=== PATIENT | female | born 1980 | race Caucasian/White ===

== ENCOUNTER 2017-11-06 07:47 | Day surgery (SDC) | payer OTHER, SELFPAY ==
[2017-11-05 14:39] VITALS: BMI 22.4
[2017-11-06] VITALS (7 sets, daily range): BP systolic 90–121; BP diastolic 55–76; PULSE 64–78; RESP 14–16; TEMP 35.8–36.6; O2SAT 97–100; BMI 22.4
--- NOTE | 2017-11-06 | PATH_ITS ---
[facility] Accession Number: [id number] . 01 Material submitted: . ENDOMETRIAL CURETTINGS . 02 Diagnosis: Endometrial Curettings: Portions of shedding endometrium and portions of secretory endometrium; negative for glandular hyperplasia, cytologic atypia, and malignancy. Some tissue fragments demonstrate prominent vessels, suggestive of polyp, if clinical and imaging findings are concordant. MRV/11/09/2017 . 02 Electronically signed: . Pearl Leach MD, Pathologist NPI- [id number] . 01 Gross description: . Received one formalin-filled container, labeled with the patient's name, labeled endometrial curettings. The specimen consists of approximately a 1 cc aggregate of tissue, mucoid material, and blood, which is filtered, wrapped, and entirely submitted in one cassette. ([id number]) /FRR . 02 Pathologist provided ICD-10: N85.00 . 02 CPT . 666041 Performed at: 01 [facility] [address], [place], [place] [id number] MD Ronald Pennington MD Phone: [phone] Performed at: 02 [facility] [address] [place], [place] [id number] MD En Decker MD Phone: [phone]
[2017-11-06] MEDS: LACTATED RINGERS 1,000 ML 100 ML IV (08:19)
--- NOTE | 2017-11-06 08:36 | SUR.OPER ---
Lithotomy on padded OR bed, head on pillow, arms secured on padded arm boards at <90 degrees abduction. Legs secured in padded yellow fins stirrups.
--- NOTE | 2017-11-06 08:54 | PM.PREOP ---
Pre-operative Note Interval Note Pre-op Check: History & Physical exam performed today
--- NOTE | 2017-11-06 08:57 | P.HP_ITS ---
History of Present Illness Date Patient Seen: 11/06/17 Time Patient Seen: 08:55 Chief complaint: D&C hysteroscopy novasure ablation [id number] Narrative: Patient is a 37-year-old who presents today for a D&C hysteroscopy with endometrial ablation secondary to menorrhagia Patient History Surgical History History of tubal ligation (Resolved 06/05/16) History of third molar tooth extraction (Resolved) S/P D&C (status post dilation and curettage) (Resolved ~2015) Status post arthroscopy (Resolved 2003) Family & Social History Social History: household members children Tobacco & Substance use: Smoking Status Never smoker alcohol intake current alcohol intake frequency a few times a month Substance Use Type does not use Meds Allergies Allergy/AdvReac Type Severity Reaction Status Date / Time No Known Drug Allergies Allergy Verified 11/06/17 08:56 Exam Vital Signs (past 8 hours): Vital Signs - 8 hr 3 11/06/17 08:13 Temperature 96.5 F L Pulse Rate 71 Respiratory Rate 16 Blood Pressure 109/70 Pulse Oximetry 100 Pulse Oximetry 100 Oxygen Delivery Method Room Air Narrative Exam Narrative: HEENT: No thyromegaly, no anterior cervical or supraclavicular lymphadenopathy. Lungs:Clear to auscultation bilaterally, no wheezes. Cardiovascular: Regular rate and rhythm, no murmurs, rubs, or gallops. Abdomen: Well-healed infraumbilical scars. No hepatosplenomegaly. No masses palpable. External genitalia: Normal Vagina: Normal Cervix: Normal Bimanual exam: 8 Week size uterus. Mobile.] Rectal: No masses. Assessment & Plan (1) Menorrhagia with regular cycle: Current visit: Yes Status: Acute Plan: Assessment/Plan Narrative: Assessment: 37-year-old with menorrhagia Negative endometrial biopsy Plan: D&C hysteroscopy with NovaSure endometrial ablation The risks, benefits, and alternatives to the procedure were explained to the patient. The risks including bleeding, infection, or uterine perforation. She understands these risks and agrees to proceed. A full capital P AR-Q was held and consent form was signed.
--- NOTE | 2017-11-06 09:16 | SUR.OPER ---
measurements for ablation: 5 length, 4.5 width, 124 power.
[2017-11-06] MEDS: fentaNYL 100 MCG/2 ML INJ IV ×2 (09:40→09:52)
--- NOTE | 2017-11-06 09:45 | PM.GYNOP.1 ---
Operative Date/Time/Diagnoses - Date of procedure: 11/06/17 Time of procedure: 09:45 Pre-op diagnosis: Menorrhagia Post-op diagnosis: same Procedure: Procedures Operation Date: 11/06/17 08:45 Actual Procedures Side Surgeon p Hysteroscopy D&C w/Novasure Ablation Theresa Contreras MD Indications: Menorrhagia Surgeon: Theresa Contreras Anesthesia Type: General (LMA) Operative Notes Findings: 7 week size anteverted uterus Both fallopian tube ostia observed Slightly thickened endometrial lining Closure Type: not applicable Specimen(s): endometrial curettings Estimated blood loss (mL): 30 Blood products transfused: none Procedure in detail: After informed consent was obtained, the patient was taken to the operating room where she was placed in the dorsal supine position. After adequate LMA general anesthesia was achieved, she was placed in the dorsal lithotomy position, and prepped and draped in the usual sterile fashion. A bivalve speculum was placed into the vagina, and the anterior lip of the cervix grasped with a single-tooth tenaculum. The cervical os was sequentially dilated with Hegar dilators to the # 10. The hysteroscope passed easily into the endometrial cavity. Both fallopian tube ostia were observed. The hysteroscope was removed. Sharp curettage was performed yielding a moderate amount of endometrial curettings. The uterus was sounded from the internal os to the fundus and measured 5 cm in length. The NovaSure catheter passed easily into the endometrial cavity and was opened. The with of the uterus was 4.5 cm. Both the length and width were set on the generator. This indicated a power of 124 w. Cervix was capped. The cavity assessment was performed and passed. The cycle was initiated and lasted for 97 sec. The NovaSure catheter was closed and removed from the uterus. The single-tooth tenaculum was removed from the anterior lip of the cervix. The bivalve speculum was removed from the vagina. Complications: none Post-operative Condition: stable Disposition: PACU Plan for aftercare: Home after recovery
[2017-11-06] MEDS: OXYCODONE/ACETAMINOPHEN 5/325 TABLET 1 TAB PO (10:02)
== END 2017-11-06 10:42 | disposition home or self-care (01) ==
PROVIDERS: Family Provider Physician Assistant; PCP Physician Assistant; Visit Provider Obstetrics & Gynecology
PROC: 0U5B8ZZ Destruction of Endometrium, Via Natural or Artificial Opening Endoscopic (ICD-10-PCS; CPT 58563; principal; 2017-11-06 08:45)
DX: N85.00 Endometrial hyperplasia, unspecified (principal); N94.6 Dysmenorrhea, unspecified
CPT/HCPCS: 58563; J1100; J2250; J2405; J2704; J3010

== ENCOUNTER → 2019-03-22 14:16 | Outpatient (CLI) | payer OTHER, MEDICAID, SELFPAY ==
[2019-03-22 14:53] LABS: Add Manual Diff / Slide Review NO; Basophils Absolute Auto 100 /uL (0-100); Basophils Percent Auto 1.1 % (0-2); Eosinophils Absolute Auto 100 /uL (0-450); Eosinophils Percent Auto 1.9 % (2-4); Hematocrit 40.4 % (36-46); Hemoglobin 13.6 g/dL (12.0-16.0); Lymphocytes Absolute Auto 2000 /uL (1100-4500); Mean Corpuscular HGB Conc 33.6 % (30-36); Mean Corpuscular Hemoglobin 29.7 PG (26-34); Mean Corpuscular Volume 88.3 fL (80-100); Monocytes Absolute Auto 300 /uL (0-900); Monocytes Percent Auto 6.2 % (3-14); Neutrophils Absolute Auto 2700 /uL (1500-7000); Neutrophils Percent Auto 52.8 % (50-75); Platelet Count 233 X10^3/uL (150-400); Red Blood Cell Count 4.58 X10^6/uL (4.0-5.2); Red Cell Distribution Width 12.9 % (11.6-14.8); White Blood Cell Count 5.2 X10^3/uL (4.5-11.0)
[2019-03-22 15:51] LABS: Alanine Aminotransferase 13 IU/L (9-52); Albumin 4.5 g/dL (3.5-5.0); Albumin Globulin Ratio 1.8 (1.0-2.8); Alkaline Phosphatase 47 U/L (38-126); Aspartate Aminotransferase 25 IU/L (14-36); BUN Creatinine Ratio 18.3 (6-22); Bilirubin Total 0.4 mg/dL (0.2-1.3); Blood Urea Nitrogen 11 mg/dL (7-17); Calcium 9.5 mg/dL (8.4-10.2); Carbon Dioxide 28 mmol/L (22-32); Chloride 103 mmol/L (98-107); Estimated Glomerular Filt Rate > 60.0 mL/min (>60); Globulin 2.5 g/dL (1.7-4.1); Glucose 94 mg/dL (70-100); HEMOLYSIS < 15 (0-50); Lipase 143 U/L (23-300); Potassium 3.9 mmol/L (3.4-5.1); Sodium 139 mmol/L (137-145)
== END ==
PROVIDERS: Visit Provider Nurse Practitioner
DX: R10.9 Unspecified abdominal pain (principal)
CPT/HCPCS: 36415; 80053; 83690; 85025

== ENCOUNTER → 2019-03-25 10:08 | Outpatient (CLI) | payer OTHER, MEDICAID, SELFPAY ==
--- NOTE | 2019-03-25 10:14 | DI.US.S_ITS ---
PROCEDURE: US ABDOMEN COMPLETE INDICATIONS: RUQ PAIN TECHNIQUE: Real-time scanning was performed of the abdominal and retroperitoneal organs, with image documentation. COMPARISON: [facility], CT, CT ABDOMEN PELVIS WITH CONTRAST, 08/31/2017, 11:32. [facility], CT, ABDOMEN/PELVIS WITH CONTRAST, 11/18/2016, 12:58. FINDINGS: Liver: Liver is normal in size and homogeneous in echotexture. Gallbladder: 3 mm dependent gallstones; otherwise normal gallbladder. Biliary ducts: Intrahepatic bile ducts are non-dilated. Extrahepatic bile duct caliber measures 5.0 mm. Normal is 6-7 mm or less in diameter, or 10 mm or less post-cholecystectomy. Pancreas: Visualized portions of the pancreas are sonographically normal. Spleen: Spleen is normal in size and homogeneous in echotexture. Kidneys: Kidneys are normal in size and echotexture. Right kidney measures 12.4 cm long; left kidney measures 12.0 cm long. No hydronephrosis. 5 mm midpole left renal nonobstructing calcification. No solid masses. Aorta: Visualized aorta is normal in caliber at less than 3 cm. Iliacs: Proximal common iliac arteries are normal in caliber at less than 2.5 cm. IVC: Intrahepatic inferior vena cava is patent. Miscellaneous: No free abdominal fluid. IMPRESSION: 1. Previously visualized hepatic lobe cyst is not seen on today's exam. 2. Cholelithiasis without acute cholecystitis. 3. Possible left renal calcification. Dictated by: Fermin REED Interpreted: Juanis Augustin MD on 03/25/2019 at 10:59 Approved by: Juanis Augustin M.D. on 03/25/2019 at 13:53
== END ==
PROVIDERS: PCP Nurse Practitioner; Visit Provider Nurse Practitioner
DX: R10.11 Right upper quadrant pain (principal); K80.20 Calculus of gallbladder without cholecystitis without obstruction
CPT/HCPCS: 76700

== ENCOUNTER 2019-04-13 15:34 | Emergency (ER) | payer OTHER, MEDICAID, SELFPAY ==
[2019-04-13 15:45] VITALS: BP 130/80; PULSE 67; RESP 16; TEMP 36.8; O2SAT 97
--- NOTE | 2019-04-13 16:03 | ED.ABDPAIN ---
HPI - Abdominal Pain <DEV Vernon - Last Filed: 04/13/19 21:28> General Chief Complaint: Abdominal Pain Stated Complaint: abdominal pain Time Seen by Provider: 04/13/19 15:39 Source: patient Mode of arrival: Ambulatory History of Present Illness HPI narrative: 39-year-old female presents emergency department today complaining of lower abdominal pain that started about 40 minutes ago. She states she was having a bowel movement and had a sudden severe right-sided to middle abdominal pain during her bowel movement. She states the pain has not gone away and described as a ?pressure in my vagina and rectum. Patient states the pain is worse with movement and palpation, describes it as a 8/10. Patient states she is having her gallbladder removed in the next few weeks but states this does not feel like a gallbladder pain. She denies any blood in her stool, dysuria, nausea, vomiting, diarrhea, chest pain, shortness of breath, fevers, or other concerns. Related Data Previous Rx's Medication Instructions Recorded hydrocodone-acetaminophen 1 tab PO Q4-6H PRN #10 tab 04/13/19 hydrocodone-acetaminophen [[place]] 1 tab PO Q4-6H PRN #10 tab 04/13/19 Allergies Allergy/AdvReac Type Severity Reaction Status Date / Time No Known Drug Allergies Allergy Verified 04/07/19 10:00 Review of Systems <DEV Vernon - Last Filed: 04/13/19 21:28> Review of Systems Narrative: REVIEW OF SYSTEMS: GENERAL: Denies fever, chills, malaise, or wt. loss. HENT: No head trauma, sore throat, or dysphagia. EYES: No loss of vision, double vision, eye pain, or irritation. CARDIOVASCULAR: No chest pain, palpitations, or orthopnea. RESPIRATORY: No shortness of breath or cough. GASTROINTESTINAL: Complains of abdominal pain, see HPI GENITOURINARY: No flank pain, urinary incontinence, hesitancy, frequency, or dysuria. No vaginal discharge or dyspareunia. Denies concerns for STIs MUSCULOSKELETAL: No pain, weakness, or trauma. INTEGUMENTARY: No rash, lesions, or pruritus. NEURO: No numbness, tingling, memory loss, confusion, or headaches. PSYCH: No behavior or mood changes. Patient History <DEV Vernon - Last Filed: 04/13/19 21:28> Medical History Anorexia nervosa (Inactive) Anxiety (Chronic) Bulimia (Inactive) Chicken pox (Resolved) Hyponatremia (Acute) Painful menstrual periods (Chronic) Surgical History Anesthesia (Resolved) History of third molar tooth extraction (Resolved) History of tubal ligation (Resolved 06/05/16) S/P D&C (status post dilation and curettage) (Resolved ~2015) S/P D&C (status post dilation and curettage) (Resolved) S/P endometrial ablation (Resolved ~2017) Status post arthroscopy (Resolved 2003) Family History Father Hypertension Hyperlipidemia Grandfather Lung cancer History of heart disease Hyperlipidemia Mental health problem Grandmother Stroke Mental health problem Hypertension Mother Cancer Grandfather History of heart disease Grandmother MVA (motor vehicle accident) Sister No problems noted. Brother No problems noted. Other Alcoholism Social History household members: children Smoking Status: Never smoker alcohol intake: current alcohol intake frequency: a few times a month Substance Use Type: does not use Exam <DEV Vernon - Last Filed: 04/13/19 21:28> Narrative Exam Narrative: PHYSICAL EXAMINATION: GENERAL: Well groomed, alert, and cooperative. Answers questions promptly and appropriately. Vital signs noted. HENT: Normocephalic, atraumatic. Hearing intact. Oral mucosa is pink and moist. EYES: Conjunctiva pink, sclera white, no periorbital swelling. CARDIOVASCULAR: S1 and S2 sounds normal. Regular rate and rhythm, no murmurs, clicks, or bruits. No pedal edema. RESPIRATORY: Normal respiratory rate, trachea midline, airway patent. No stridor, nasal flaring or accessory muscle use. Lungs are clear in all [place] without wheeze, rhonchi, or crackles. GASTROINTESTINAL: Bowel sounds normoactive. Abdomen is soft RLQ tenderness to palpation. No organomegaly, no palpable masses. GENITALURINARY: No flank tenderness. PELVIC EXAM: Cervix visualized with a small amount of blood in the os, no purulent discharge. No cervical motion tenderness. Vaginal rugae intact without discharge. Right adnexa tenderness. MUSCULOSKELETAL: Normal gait and coordination. Equal tone and mass bilaterally. EXTREMITIES: CMS intact, no pedal edema. SKIN: Warm, dry, soft, appropriate color for ethnicity. No lesions, rashes, or wounds. NEURO: Alert and Oriented X 3. Good coordination. No ataxia, or sensory deficits, or cognitive issues. PSYCH: Appropriate affect and mood. Initial Vital Signs Initial Vital Signs: Vital Signs Temperature 98.3 F 04/13/19 15:45 Pulse Rate 67 04/13/19 15:45 Respiratory Rate 16 04/13/19 15:45 Blood Pressure 130/80 04/13/19 15:45 Pulse Oximetry 97 04/13/19 15:45 <Oziel Bailey MD - Last Filed: 04/14/19 00:16> Initial Vital Signs Initial Vital Signs: Vital Signs Temperature 98.3 F 04/13/19 15:45 Pulse Rate 67 04/13/19 15:45 Respiratory Rate 16 04/13/19 15:45 Blood Pressure 130/80 04/13/19 15:45 Pulse Oximetry 97 04/13/19 15:45 Course <DEV Vernon - Last Filed: 04/13/19 21:28> Course Course Narrative: Patient was given sodium chloride and Toradol, she reports slightly decreased pain, rating pain as an 4/10. Patient was given Zofran and hydrocodone before discharge which patient reports improved pain. Her states he is driving home. Orders Ordered: ED Orders 04/13/19 16:32 Complete Blood Count AUTO DIFF Stat Comprehensive Metabolic Panel Stat Lipase Stat 04/13/19 17:02 CT abdomen pelvis w con Stat Discontinued Medications Hydrocodone Bitart/Acetaminophen ([place] 5/325) 1 tab PO NOW ONE Stop: 04/13/19 18:53 Last Admin: 04/13/19 19:11 Dose: 1 tab Documented by: BRANDAN Sodium Chloride (Normal Saline 0.9%) 1,000 mls @ 1,000 mls/hr IV BOLUS ONE Stop: 04/13/19 17:05 Last Infusion: 04/13/19 18:02 Dose: 0 mls/hr Documented by: Admin: 04/13/19 16:19 Dose: 1,000 mls/hr Documented by: TERRELL Ketorolac Tromethamine (Toradol) 30 mg IV NOW ONE Stop: 04/13/19 16:08 Last Admin: 04/13/19 16:19 Dose: 30 mg Documented by: TERRELL Morphine Sulfate (Morphine) 4 mg IV NOW ONE Stop: 04/13/19 18:38 Last Admin: 04/13/19 19:17 Dose: Not Given Documented by: RUBENS Ondansetron HCl (Zofran) 4 mg IV NOW ONE Stop: 04/13/19 18:38 Last Admin: 04/13/19 19:11 Dose: 4 mg Documented by: BRANDAN Reevaluation(s) Reevaluation #1: Patient reports decreased pain after administration of medications. Consultations Consultation #1: Patient staffed Dr. Bailey. Vital Signs Vital signs: Vital Signs - 8 hr 04/13/19 16:43 04/13/19 17:00 04/13/19 18:11 Pulse Rate 62 66 88 Respiratory Rate 16 19 12 Blood Pressure [Left Arm] 119/68 110/77 110/72 Pulse Oximetry 100 100 04/13/19 19:28 Pulse Rate 78 Respiratory Rate 17 Blood Pressure [Left Arm] 110/78 Pulse Oximetry 98 <Oziel Bailey MD - Last Filed: 04/14/19 00:16> Orders Ordered: ED Orders 04/13/19 16:32 Complete Blood Count AUTO DIFF Stat Comprehensive Metabolic Panel Stat Lipase Stat 04/13/19 17:02 CT abdomen pelvis w con Stat Discontinued Medications Hydrocodone Bitart/Acetaminophen ([place] 5/325) 1 tab PO NOW ONE Stop: 04/13/19 18:53 Last Admin: 04/13/19 19:11 Dose: 1 tab Documented by: BRANDAN Sodium Chloride (Normal Saline 0.9%) 1,000 mls @ 1,000 mls/hr IV BOLUS ONE Stop: 04/13/19 17:05 Last Infusion: 04/13/19 18:02 Dose: 0 mls/hr Documented by: Admin: 04/13/19 16:19 Dose: 1,000 mls/hr Documented by: TERRELL Ketorolac Tromethamine (Toradol) 30 mg IV NOW ONE Stop: 04/13/19 16:08 Last Admin: 04/13/19 16:19 Dose: 30 mg Documented by: TERRELL Morphine Sulfate (Morphine) 4 mg IV NOW ONE Stop: 04/13/19 18:38 Last Admin: 04/13/19 19:17 Dose: Not Given Documented by: RUBENS Ondansetron HCl (Zofran) 4 mg IV NOW ONE Stop: 04/13/19 18:38 Last Admin: 04/13/19 19:11 Dose: 4 mg Documented by: BRANDAN Vital Signs Vital signs: Vital Signs - 8 hr 04/13/19 16:43 04/13/19 17:00 04/13/19 18:11 Pulse Rate 62 66 88 Respiratory Rate 16 19 12 Blood Pressure [Left Arm] 119/68 110/77 110/72 Pulse Oximetry 100 100 04/13/19 19:28 Pulse Rate 78 Respiratory Rate 17 Blood Pressure [Left Arm] 110/78 Pulse Oximetry 98 MDM - Abdominal Pain <DEV Vernon - Last Filed: 04/13/19 21:28> Medical Records Attestation: I reviewed the patient's medical records. Lab Data Attestation: I reviewed the patient's lab results. Result diagrams: 04/13/19 16:32 04/13/19 16:32 Labs: Lab Results 04/13/19 04/13/19 Range/Units 16:32 16:32 WBC 6.4 (4.5-11.0) X10^3/uL RBC 4.70 (4.0-5.2) X10^6/uL Hgb 14.1 (12.0-16.0) g/dL Hct 40.9 (36-46) % MCV 87.2 (80-100) fL MCH 30.1 (26-34) PG MCHC 34.5 (30-36) % RDW 12.6 (11.6-14.8) % Plt Count 249 (150-400) X10^3/uL Neut % (Auto) 56.7 (50-75) % Lymph % (Auto) 33.4 (25-40) % [place] % (Auto) 7.1 (3-14) % Eos % (Auto) 1.8 L (2-4) % Baso % (Auto) 1.0 (0-2) % Neut # (Auto) 3600 (3496-3392) /uL Lymph # (Auto) 2100 (8618-1654) /uL [place] # (Auto) 500 (0-900) /uL Eos # (Auto) 100 (0-450) /uL Baso # (Auto) 100 (0-100) /uL Sodium 140 (137-145) mmol/L Potassium 3.8 (3.4-5.1) mmol/L Chloride 103 (98-107) mmol/L Carbon Dioxide 27 (22-32) mmol/L BUN 12 (7-17) mg/dL Creatinine 0.70 (0.52-1.04) mg/dL Estimated GFR > 60.0 (>60) mL/min BUN/Creatinine Ratio 17.1 (6-22) Glucose 93 (70-100) mg/dL Calcium 9.3 (8.4-10.2) mg/dL Total Bilirubin 0.6 (0.2-1.3) mg/dL AST 25 (14-36) IU/L ALT 14 (<35) IU/L Alkaline Phosphatase 43 (38-126) U/L Total Protein 7.1 (6.3-8.2) g/dL Albumin 4.6 (3.5-5.0) g/dL Globulin 2.5 (1.7-4.1) g/dL Albumin/Globulin Ratio 1.8 (1.0-2.8) Lipase 103 (23-300) U/L Point of care testing: Urine Dip Bedside Urine Glucose Negative Bedside Urine Bilirubin - Negative Bedside Urine Ketone - Negative Urine Specific [place] 1.010 Bedside Urine Occult Blood - Negative Bedside Urine pH 6.0 Bedside Urine Protein - Negative Bedside Urine Urobilinogen - Negative Bedside Urine Nitrite - Negative Bedside Urine Leukocytes - Negative Esterase Imaging Data CT scan - abdomen: Radiologist's impression: [address] [address] [address] Scan Report Signed Patient: Lakeisah Campbell AMR#: [id number] : 1980Acct:[id number] Age/Sex: 39 / FDate of Service: 04/13/19 Loc: ED Accession Number: [id number] Procedure: CT abdomen pelvis w con Ordering Provider: Lakeisha Chung [employer]IST PROCEDURE: CT ABDOMEN PELVIS W CON INDICATIONS: RLQ pain TECHNIQUE: After the administration of intravenous contrast, 5 mm thick sections acquired from the diaphragm to the symphysis. 5 mm coronal and sagittal reformats were acquired. For radiation dose reduction, the following was used: automated exposure control, adjustment of mA and/or kV according to patient size. COMPARISON: [facility], CT, CT ABDOMEN PELVIS WITH CONTRAST, 08/31/2017, 11:32. [facility], US, US ABDOMEN COMPLETE, 03/25/2019, 10:25. [facility], US, US PELVIC COMPLETE, 11/03/2017, 12:53. [facility], CT, ABDOMEN/PELVIS WITH CONTRAST, 11/18/2016, 12:58. FINDINGS: Image quality: Excellent. ABDOMEN: Lung bases: Lung bases are clear. Heart size is normal. Solid organs: Liver is mildly enlarged. Gallbladder is contracted with an appearance of thickened wall. No stones are identified. Biliary system is non dilated. Pancreas enhances normally. Spleen is normal in size and enhancement. No adrenal nodules. Kidneys demonstrate normal size and enhancement, without hydronephrosis. Peritoneum and bowel: Bowel loops demonstrate normal wall thickness and caliber. No free air. Minimal dependent pelvic free fluid is present. Appendix is unremarkable. Nodes and vessels: No retroperitoneal or mesenteric adenopathy by size criteria. Aorta and inferior vena cava are normal in size. Miscellaneous: No ventral hernias. PELVIS: Genitourinary: Bladder wall thickness is normal. Enhancing low attenuation focus is present within the right adnexa measuring 32 mm x 27 mm. The uterus is enlarged and heterogeneous suggestive of fibroids. Miscellaneous: No inguinal hernias or adenopathy. Bones: No suspicious bony lesions. No vertebral body compression fractures. IMPRESSION: 1. Enhancing focus of low attenuation within the region of the right adnexa with dependent free pelvic fluid suggestive of hemorrhagic cyst. 2. Appendix is within normal limits. Dictated by: Juanis Augustin M.D. on 04/13/2019 at 18:22 Approved by: Juanis Augustin M.D. on 04/13/2019 at 18:25 MDM Narrative Medical decision making narrative: This is a 39-year-old female with right lower quadrant pain who has been hemodynamically stable throughout the emergency department today. Differential includes ruptured hemorrhagic ovarian cyst (CT finding of pelvic fluid, right adnexa index tenderness), appendicitis (less likely due to normal white blood cell count, no swelling on CT scan, no systemic symptoms such as tachycardia or fever), less likely PID (lack of vaginal discharge, no cervical motion tenderness), and less likely ruptured ovarian cyst (negative , history of ablation). Patient was given pain medication, she is encouraged to follow up with [employer] [employer]. Strict return precautions given and follow-up instructions discussed. <Oziel Bailey MD - Last Filed: 04/14/19 00:16> Lab Data Labs: Lab Results 04/13/19 04/13/19 Range/Units 16:32 16:32 WBC 6.4 (4.5-11.0) X10^3/uL RBC 4.70 (4.0-5.2) X10^6/uL Hgb 14.1 (12.0-16.0) g/dL Hct 40.9 (36-46) % MCV 87.2 (80-100) fL MCH 30.1 (26-34) PG MCHC 34.5 (30-36) % RDW 12.6 (11.6-14.8) % Plt Count 249 (150-400) X10^3/uL Neut % (Auto) 56.7 (50-75) % Lymph % (Auto) 33.4 (25-40) % [place] % (Auto) 7.1 (3-14) % Eos % (Auto) 1.8 L (2-4) % Baso % (Auto) 1.0 (0-2) % Neut # (Auto) 3600 (9653-2732) /uL Lymph # (Auto) 2100 (8830-8309) /uL [place] # (Auto) 500 (0-900) /uL Eos # (Auto) 100 (0-450) /uL Baso # (Auto) 100 (0-100) /uL Sodium 140 (137-145) mmol/L Potassium 3.8 (3.4-5.1) mmol/L Chloride 103 (98-107) mmol/L Carbon Dioxide 27 (22-32) mmol/L BUN 12 (7-17) mg/dL Creatinine 0.70 (0.52-1.04) mg/dL Estimated GFR > 60.0 (>60) mL/min BUN/Creatinine Ratio 17.1 (6-22) Glucose 93 (70-100) mg/dL Calcium 9.3 (8.4-10.2) mg/dL Total Bilirubin 0.6 (0.2-1.3) mg/dL AST 25 (14-36) IU/L ALT 14 (<35) IU/L Alkaline Phosphatase 43 (38-126) U/L Total Protein 7.1 (6.3-8.2) g/dL Albumin 4.6 (3.5-5.0) g/dL Globulin 2.5 (1.7-4.1) g/dL Albumin/Globulin Ratio 1.8 (1.0-2.8) Lipase 103 (23-300) U/L Point of care testing: Urine Dip Bedside Urine Glucose Negative Bedside Urine Bilirubin - Negative Bedside Urine Ketone - Negative Urine Specific [place] 1.010 Bedside Urine Occult Blood - Negative Bedside Urine pH 6.0 Bedside Urine Protein - Negative Bedside Urine Urobilinogen - Negative Bedside Urine Nitrite - Negative Bedside Urine Leukocytes - Negative Esterase Discharge Plan Departure Patient Disposition: Home Clinical Impression: Ovarian cyst rupture Discharge Date/Time: 04/13/19 19:30 Instructions: DI for Ovarian Cyst Activity Restrictions/Additional Instructions: Thank you for entrusting me with your care today. As discussed, your CT scan indicates a possible ruptured hemorrhagic ovarian cyst, this is most likely the cause of your pain. U [place] prescribed pain medication. You have been prescribed a narcotic medication, this medication can make you drowsy. Do not drive while using this medication or perform activities that require mental alertness. These medications can also make you constipated, please use [id number] docusate sodium as needed for constipation. Follow up with your primary care provider in the next few weeks for re-evaluation. Return emergency department for new or worsening symptoms such as worsening abdominal pain, uncontrollable vomiting, high fevers, chest pain, shortness of breath, or other concerns. Prescriptions: New hydrocodone-acetaminophen 5-325 mg tablet 1 tab PO Q4-6H PRN (Reason: pain) Qty: 10 RF: 0 hydrocodone-acetaminophen [[place]] 5-325 mg tablet 1 tab PO Q4-6H PRN (Reason: pain) Qty: 10 RF: 0 Referrals: Tyesha Marie ARNP [Primary Care Provider] -
[2019-04-13] MEDS: SODIUM CHLORIDE 0.9% 1,000 ML 1000 ML IV (16:19)
[2019-04-13] MEDS: KETOROLAC 60 MG/2 ML VIAL 30 MG IV (16:19)
[2019-04-13 16:42] LABS: Add Manual Diff / Slide Review NO; Basophils Absolute Auto 100 /uL (0-100); Eosinophils Absolute Auto 100 /uL (0-450); Eosinophils Percent Auto 1.8 % (2-4); Hematocrit 40.9 % (36-46); Hemoglobin 14.1 g/dL (12.0-16.0); Lymphocytes Absolute Auto 2100 /uL (1100-4500); Lymphocytes Percent Auto 33.4 % (25-40); Mean Corpuscular HGB Conc 34.5 % (30-36); Mean Corpuscular Hemoglobin 30.1 PG (26-34); Mean Corpuscular Volume 87.2 fL (80-100); Monocytes Absolute Auto 500 /uL (0-900); Monocytes Percent Auto 7.1 % (3-14); Neutrophils Absolute Auto 3600 /uL (1500-7000); Neutrophils Percent Auto 56.7 % (50-75); Platelet Count 249 X10^3/uL (150-400); Red Cell Distribution Width 12.6 % (11.6-14.8); White Blood Cell Count 6.4 X10^3/uL (4.5-11.0)
[2019-04-13 16:43] VITALS: BP 119/68; PULSE 62; RESP 16; O2SAT 100
[2019-04-13 16:58] LABS: Alanine Aminotransferase 14 IU/L (<35); Albumin 4.6 g/dL (3.5-5.0); Albumin Globulin Ratio 1.8 (1.0-2.8); Alkaline Phosphatase 43 U/L (38-126); Aspartate Aminotransferase 25 IU/L (14-36); BUN Creatinine Ratio 17.1 (6-22); Bilirubin Total 0.6 mg/dL (0.2-1.3); Blood Urea Nitrogen 12 mg/dL (7-17); Calcium 9.3 mg/dL (8.4-10.2); Carbon Dioxide 27 mmol/L (22-32); Chloride 103 mmol/L (98-107); Estimated Glomerular Filt Rate > 60.0 mL/min (>60); Globulin 2.5 g/dL (1.7-4.1); Glucose 93 mg/dL (70-100); HEMOLYSIS 17 (0-50); Lipase 103 U/L (23-300); Potassium 3.8 mmol/L (3.4-5.1); Sodium 140 mmol/L (137-145); Total Protein 7.1 g/dL (6.3-8.2)
[2019-04-13 17:00] VITALS: BP 110/77; PULSE 66; RESP 19; O2SAT 100
--- NOTE | 2019-04-13 17:02 | DI.CT.S_ITS ---
PROCEDURE: CT ABDOMEN PELVIS W CON INDICATIONS: RLQ pain TECHNIQUE: After the administration of intravenous contrast, 5 mm thick sections acquired from the diaphragm to the symphysis. 5 mm coronal and sagittal reformats were acquired. For radiation dose reduction, the following was used: automated exposure control, adjustment of mA and/or kV according to patient size. COMPARISON: [facility], CT, CT ABDOMEN PELVIS WITH CONTRAST, 08/31/2017, 11:32. [facility], US, US ABDOMEN COMPLETE, 03/25/2019, 10:25. [facility], US, US PELVIC COMPLETE, 11/03/2017, 12:53. [facility], CT, ABDOMEN/PELVIS WITH CONTRAST, 11/18/2016, 12:58. FINDINGS: Image quality: Excellent. ABDOMEN: Lung bases: Lung bases are clear. Heart size is normal. Solid organs: Liver is mildly enlarged. Gallbladder is contracted with an appearance of thickened wall. No stones are identified. Biliary system is non dilated. Pancreas enhances normally. Spleen is normal in size and enhancement. No adrenal nodules. Kidneys demonstrate normal size and enhancement, without hydronephrosis. Peritoneum and bowel: Bowel loops demonstrate normal wall thickness and caliber. No free air. Minimal dependent pelvic free fluid is present. Appendix is unremarkable. Nodes and vessels: No retroperitoneal or mesenteric adenopathy by size criteria. Aorta and inferior vena cava are normal in size. Miscellaneous: No ventral hernias. PELVIS: Genitourinary: Bladder wall thickness is normal. Enhancing low attenuation focus is present within the right adnexa measuring 32 mm x 27 mm. The uterus is enlarged and heterogeneous suggestive of fibroids. Miscellaneous: No inguinal hernias or adenopathy. Bones: No suspicious bony lesions. No vertebral body compression fractures. IMPRESSION: 1. Enhancing focus of low attenuation within the region of the right adnexa with dependent free pelvic fluid suggestive of hemorrhagic cyst. 2. Appendix is within normal limits. Dictated by: Juanis Augustin M.D. on 04/13/2019 at 18:22 Approved by: Juanis Augustin M.D. on 04/13/2019 at 18:25
[2019-04-13 18:11] VITALS: BP 110/72; PULSE 88; RESP 12
[2019-04-13] MEDS: HYDROCODONE/ACET 5/325 TABLET 1 TAB PO (19:11)
[2019-04-13] MEDS: ONDANSETRON 4 MG/2 ML INJ IV (19:11)
[2019-04-13 19:28] VITALS: BP 110/78; PULSE 78; RESP 17; O2SAT 98
== END 2019-04-13 19:30 | disposition home or self-care (01) ==
PROVIDERS: Emergency Provider Nurse Practitioner; Family Provider Nurse Practitioner; PCP Nurse Practitioner
DX: N83.201 Unspecified ovarian cyst, right side (principal)
CPT/HCPCS: 36415; 74177; 80053; 81003; 83690; 85025; 96361; 96374; 96375; 99283; 99285; J1885; J2405; Q9967

== ENCOUNTER 2019-04-26 09:40 | Day surgery (SDC) | payer OTHER, MEDICAID, SELFPAY ==
[2019-04-21 14:57] VITALS: BMI 23.8
[2019-04-26] VITALS (13 sets, daily range): BP systolic 98–132; BP diastolic 56–78; PULSE 55–81; RESP 10–20; TEMP 36.5–36.7; O2SAT 94–100; BMI 23.8
--- NOTE | 2019-04-26 | PATH_ITS ---
[facility] Accession Number: [id number] . 01 Material submitted: . gallbladder - GALLBLADDER . 02 Diagnosis: Gallbladder, Cholecystectomy: Minimal chronic cholecystitis. One benign lymph node. Negative for dysplasia or malignancy. MRV 04/29/2019 1634 Local . 02 Electronically signed: . Cornell Miller MD, PhD, Pathologist NPI- [id number] . 01 Gross description: . Received in formalin, labeled gallbladder, is an intact gallbladder (length-7.9 cm, diameter-3.4 cm) with green smooth and shiny serosa and a patent cystic duct. Multiple possible lymph nodes (0.2 x 0.2 x 0.1 cm-0.5 x 0.4 x 0.2 cm) are identified. The lumen contains dark green watery bile. No calculi are present. The mucosa is dark brown green smooth and flat. The wall is up to 0.1 cm thick. No nodules, masses or lesions are identified. Section code: (A1) cystic duct resection margin and two serial sections from the body; (A2) two longitudinal sections from the fundus; (A3) multiple possible intact lymph nodes. ([id number]) /[facility] 04/27/2019 1639 Local . 02 Pathologist provided ICD-10: K80.50 . 02 CPT . 365872 Performed at: 01 [facility] [address] [place] [address], [place], [place] [id number] MD Ronald Pennington MD Phone: [phone] Performed at: 02 [facility] [address] [place], [place] [id number] MD Roxanne Dawkins MD Phone: [phone]
[2019-04-26] MEDS: LACTATED RINGERS 1,000 ML 42 ML IV (10:29)
--- NOTE | 2019-04-26 10:58 | PM.PREOP ---
Pre-operative Note Interval Note History & Physical reviewed/Exam performed by Physician: Yes Changes to H&P: No
[2019-04-26] MEDS: CEFAZOLIN 2 GM/100 ML FROZ.PIGGY IV (11:14)
--- NOTE | 2019-04-26 11:39 | SUR.OPER ---
Supine on padded OR bed, head on pillow, safety belt at thigh, bilateral arms secured on padded arm board <90 degrees abduction. Legs uncrossed. Padded footboard in place. Tape over blanket to secure lower legs.
[2019-04-26] MEDS: BUPIVACAINE 0.25% (PF) VIAL 30 ML INJ (11:45)
[2019-04-26] MEDS: fentaNYL 100 MCG/2 ML INJ IV ×2 (12:29→13:02)
[2019-04-26] MEDS: LORazepam 2 MG/ML INJ 0.25 MG IV (12:33)
[2019-04-26] MEDS: OXYCODONE/ACETAMINOPHEN 5/325 TABLET 1 TAB PO ×2 (12:48→13:28)
--- NOTE | 2019-04-26 12:51 | SUR.PHASEI ---
report given to Naomy Hammonds
[2019-04-26] MEDS: ONDANSETRON 4 MG/2 ML INJ IV (13:43)
--- NOTE | 2019-04-26 13:55 | SUR.PHASEII ---
Report given to Xenia MALIK
--- NOTE | 2019-04-26 14:20 | SUR.PHASEII ---
Pt states pain is tolerable. Vitals stable, ice bag refilled for ride home. Independently dressed by herself. Escorted to ED in [facility] by volunteer
--- NOTE | 2019-05-12 15:41 | PM.OP.1 ---
Operative Date/Time/Diagnoses Date of procedure: 04/26/19 Time of procedure: 15:42 Pre-op diagnosis: Biliary colic Post-op diagnosis: same Procedure & Clinicians Procedure: Laparoscopic cholecystectomy Same procedure as scheduled: Yes Indications: 39-year-old female with biliary colic presents for elective cholecystectomy Surgeon: Loy Grimes Click Yes if Unassisted: Yes Anesthesia Type: General Operative Notes Findings: Chronic cholecystitis Specimen(s): other (Gallbladder) Estimated Blood Loss (mL): 10 Procedure in detail: The patient was brought to the operating room placed supine on the table. Bilateral lower extremity compression devices were applied. General anesthesia was induced and they were intubated with an endotracheal tube. They received 2 Ancef prior to skin incision. A time-out was performed to ensure the correct patient procedure necessary equipment within the operating room. They were then prepped and draped in the usual sterile fashion. Infraumbilical incision was made the umbilical stalk was grasped and elevated and the fascia was sharply incised. The abdomen was entered atraumatically. A 10 mm trocar was then placed into the abdomen. Pneumoperitoneum was established. The laparoscopic camera was inserted into the abdomen inspection was made that demonstrated no evidence of injury upon entry. We then placed our working ports the 1st 5 mm port high in the epigastrium and then 2 in the right upper quadrant. The gallbladder was grasped and retracted over the liver and grasped laterally by the fundus. There was evidence of mild chronic cholecystitisThe triangle of Calot was exposed. The triangle of calot was then skeletonized using hook electrocautery and demonstrated the cystic duct clearly entering the gallbladder the cystic artery and the liver and in the background. With the critical view of safety established the cystic duct was clipped twice proximally and once distally and then sharply divided and the cystic artery was taken in the same fashion. Next the gallbladder was removed from the liver bed using electro cautery. The liver bed was then inspected for hemostasis and this was achieved. The abdomen was irrigated with sterile saline and inspection was made that showed the clips in good position. The specimen was removed using Endo-Catch. The abdomen was desufflated. The the fascia of the umbilicus was closed with 0 Vicryl in a [id number] fashion. Skin incisions were irrigated and closed with 4-0 Monocryl. The wounds were sealed with Dermabond. Patient emerged from general anesthesia was extubated and transferred to the postoperative care unit missed stable condition. The sponge and instrument count at the end of the operation was correct. Complications: none Post-operative Disposition: same day surgery
== END 2019-04-26 14:23 | disposition home or self-care (01) ==
PROVIDERS: Family Provider Nurse Practitioner; PCP Nurse Practitioner; Visit Provider Surgery
PROC: 0FT44ZZ Resection of Gallbladder, Percutaneous Endoscopic Approach (ICD-10-PCS; CPT 47562; principal; 2019-04-26 10:45)
DX: K81.1 Chronic cholecystitis (principal)
CPT/HCPCS: 47562; J0690; J1100; J1885; J2060; J2250; J2405; J2704; J3010

== ENCOUNTER → 2019-12-02 11:09 | Outpatient (CLI) | payer OTHER, MEDICAID, SELFPAY ==
[2019-12-04 04:07] LABS: COVID19 Sendout Not Detected (Not Detected)
== END ==
PROVIDERS: Family Provider Nurse Practitioner; PCP Nurse Practitioner; Visit Provider Nurse Practitioner
DX: R50.9 Fever, unspecified (principal); J02.9 Acute pharyngitis, unspecified
CPT/HCPCS: 87070; 87077; 87147; 87186; 87635

== ENCOUNTER → 2020-01-27 14:02 | Outpatient (CLI) | payer OTHER, MEDICAID, SELFPAY ==
[2020-01-27 15:45] LABS: COVID19 -Nasal RAPID Negative (Negative)
== END ==
PROVIDERS: Family Provider Nurse Practitioner; PCP Nurse Practitioner; Visit Provider Physician Assistant
DX: Z11.59 Encounter for screening for other viral diseases (principal)
CPT/HCPCS: 87635

== ENCOUNTER → 2020-04-18 14:19 | Outpatient (CLI) | payer OTHER, MEDICAID, SELFPAY ==
[2020-04-18 17:23] LABS: COVID19 -Nasal RAPID Negative (Negative)
== END ==
PROVIDERS: Family Provider Nurse Practitioner; PCP Nurse Practitioner; Visit Provider Physician Assistant
DX: R05 Cough (principal); R09.89 Other specified symptoms and signs involving the circulatory and respiratory systems; R51.9 Headache, unspecified
CPT/HCPCS: 87635

== ENCOUNTER → 2020-05-09 09:08 | Outpatient (CLI) | payer OTHER, MEDICAID, SELFPAY ==
[2020-05-09 09:39] LABS: Add Manual Diff / Slide Review NO; Basophils Absolute Auto 100 /uL (0-100); Basophils Percent Auto 1.1 % (0-2); Eosinophils Absolute Auto 200 /uL (0-450); Eosinophils Percent Auto 3.9 % (2-4); Hematocrit 44.3 % (36-46); Hemoglobin 14.9 g/dL (12.0-16.0); Lymphocytes Absolute Auto 2200 /uL (1100-4500); Lymphocytes Percent Auto 45.7 % (25-40); Mean Corpuscular HGB Conc 33.6 % (30-36); Mean Corpuscular Hemoglobin 30.3 PG (26-34); Mean Corpuscular Volume 90.1 fL (80-100); Monocytes Absolute Auto 300 /uL (0-900); Monocytes Percent Auto 6.3 % (3-14); Neutrophils Absolute Auto 2100 /uL (1500-7000); Platelet Count 270 X10^3/uL (150-400); Red Blood Cell Count 4.91 X10^6/uL (4.0-5.2); Red Cell Distribution Width 12.7 % (11.6-14.8); White Blood Cell Count 4.9 X10^3/uL (4.5-11.0)
[2020-05-09 10:17] LABS: Alanine Aminotransferase 14 IU/L (<35); Albumin 4.5 g/dL (3.5-5.0); Albumin Globulin Ratio 1.7 (1.0-2.8); Alkaline Phosphatase 59 U/L (38-126); Aspartate Aminotransferase 22 IU/L (14-36); BUN Creatinine Ratio 12.7 (6-22); Bilirubin Total 0.9 mg/dL (0.2-1.3); Blood Urea Nitrogen 9 mg/dL (7-17); Calcium 9.4 mg/dL (8.4-10.2); Carbon Dioxide 28 mmol/L (22-32); Chloride 103 mmol/L (98-107); Cholesterol 208 mg/dL (140-199); Estimated Glomerular Filt Rate > 60.0 mL/min (>60); Globulin 2.6 g/dL (1.7-4.1); Glucose 100 mg/dL (70-100); HDL Cholesterol 78 mg/dL (40-60); HEMOLYSIS < 15 (0-50); LDL Cholesterol Calculated 108 mg/dL (<100); Sodium 137 mmol/L (137-145); Total Protein 7.1 g/dL (6.3-8.2); Triglycerides 111 mg/dL (35-150)
[2020-05-09 10:27] LABS: Free T3, Triiodothyronine Free 3.07 pg/mL (2.77-5.27); Free T4, Direct Thyroxine 1.13 ng/dL (0.78-2.19)
[2020-05-09 10:40] LABS: Thyroid Stimulating Hormone 0.796 uIU/mL (0.47-4.68)
[2020-05-10 23:59] LABS: QuantiFERON Mitogen Value 7.63 IU/mL (.); QuantiFERON Nil Value 0.21 IU/mL (.); QuantiFERON TB Gold Plus Negative (Negative); QuantiFERON TB1 Ag Value 0.18 IU/mL (.); QuantiFERON TB2 Ag Value 0.19 IU/mL (.)
== END ==
PROVIDERS: Family Provider Nurse Practitioner; PCP Nurse Practitioner; Referring Provider Nurse Practitioner; Visit Provider Nurse Practitioner
DX: Z13.6 Encounter for screening for cardiovascular disorders (principal); Z13.29 Encounter for screening for other suspected endocrine disorder; Z11.1 Encounter for screening for respiratory tuberculosis
CPT/HCPCS: 36415; 80053; 80061; 84439; 84443; 84481; 85025; 86480

== ENCOUNTER → 2020-12-18 09:54 | Outpatient (CLI) | payer OTHER, MEDICAID, SELFPAY ==
--- NOTE | 2020-12-18 09:57 | DI.RAD.S_ITS ---
PROCEDURE: XR KNEE LT 3V INDICATIONS: left knee/upper leg pain, mass TECHNIQUE: 3 views of the knee were acquired. COMPARISON: None. FINDINGS: Bones: No fractures or dislocations. No suspicious bony lesions. Soft tissues: No joint effusion. No suspicious soft tissue calcifications. No suspicious soft tissue masses visualized radiographically. IMPRESSION: Left knee without radiographic abnormalities. No abnormal mass lesion identified. Consider further evaluation with MRI if there is persistent clinical concern for presence of a soft tissue mass. Dictated by: Jarvis Hahn M.D. on 12/18/2020 at 11:35 Approved by: Jarvis Hahn M.D. on 12/18/2020 at 11:58
[2020-12-18 12:36] LABS: Free T3, Triiodothyronine Free 3.31 pg/mL (2.77-5.27); Free T4, Direct Thyroxine 0.81 ng/dL (0.78-2.19)
[2020-12-18 12:49] LABS: Thyroid Stimulating Hormone 1.42 uIU/mL (0.47-4.68)
== END ==
PROVIDERS: Family Provider Nurse Practitioner; PCP Nurse Practitioner; Referring Provider Nurse Practitioner; Visit Provider Nurse Practitioner
DX: M25.562 Pain in left knee (principal); F32.2 Major depressive disorder, single episode, severe without psychotic features; F41.9 Anxiety disorder, unspecified; G47.00 Insomnia, unspecified
CPT/HCPCS: 36415; 73562; 84439; 84443; 84481

== ENCOUNTER → 2021-02-09 08:43 | Outpatient (CLI) | payer OTHER, MEDICAID, SELFPAY ==
--- NOTE | 2021-02-09 08:44 | DI.MRI.S_ITS ---
PROCEDURE: MR KNEE LT WO CON INDICATIONS: pain and soft tissue injury left knee TECHNIQUE: Noncontrast sagittal PD fast spin echo and T2 fast spin echo with fat saturation, sagittal 3-D FLASH with fat saturation; coronal T1 spin echo and PD fast spin echo with fat saturation, and axial PD fast spin echo with fat saturation through the knee. COMPARISON: [facility], CR, XR KNEE LT 3V, 12/18/2020, 10:28. FINDINGS: Image quality: Excellent. Menisci: Possible small ramp lesion in the lateral aspect of the posterior horn of the medial meniscus (series 7, image 7). The lateral meniscus demonstrates normal morphology and internal signal. The meniscal root ligaments appear intact. Cruciate ligaments: The anterior and posterior cruciate ligaments appear intact. Medial structures: The medial collateral ligament appears intact. The semimembranosus tendon insertions and meniscocapsular junction appear intact. Visualized portions of the pes anserinus tendons appear normal. No abnormal bursal fluid. Lateral structures: The lateral collateral ligament, long and short heads of the biceps femoris tendon appear intact. The popliteus tendon appears normal. Iliotibial band appears normal. Anterior structures: There is a linear longitudinal hyperintense signal in the proximal patellar tendon near the patellar attachment (series 7, image 17-18). The quadriceps tendon appear intact. Patellar alignment is normal. No femoral trochlear dysplasia or ventral trochlear prominence. Mild edema in the infrapatellar fat pad. Bones and cartilage: No bone marrow contusions or fractures. The cartilage of the medial and lateral femorotibial compartments, as well as the patellofemoral compartment, appears normal in thickness. Joint space: There is small knee jointeffusion. No Patterson's cyst. Normal appearing synovial plicae are incidentally noted. IMPRESSION: 1. Possible small ramp lesion in the lateral aspect of the posterior horn of the medial meniscus. 2. A linear longitudinal hyperintense signal in the proximal patellar tendon near the patellar attachment, consistent with partial longitudinal tear. 3. There is mild edema in the infrapatellar fat pad consistent with infrapatellar fat impingement (Hoffitis or Hoffa pad impingement syndrome). 4. Small knee joint effusion. Dictated by: Bryan Lamb M.D. on 02/11/2021 at 9:45 Approved by: Bryan Lamb M.D. on 02/11/2021 at 18:21
== END ==
PROVIDERS: Family Provider Nurse Practitioner; PCP Nurse Practitioner; Referring Provider Nurse Practitioner; Visit Provider Nurse Practitioner
DX: M25.562 Pain in left knee (principal); M25.462 Effusion, left knee
CPT/HCPCS: 73721

== ENCOUNTER → 2021-03-01 09:32 | Outpatient (CLI) | payer OTHER, MEDICAID, SELFPAY ==
[2021-03-01 13:36] LABS: COVID19 -Nasal RAPID Negative (Negative)
== END ==
PROVIDERS: Family Provider Nurse Practitioner; PCP Nurse Practitioner; Visit Provider Physician Assistant
DX: Z20.822 Contact with and (suspected) exposure to COVID-19 (principal); J34.89 Other specified disorders of nose and nasal sinuses
CPT/HCPCS: 87635

== ENCOUNTER → 2021-05-14 10:16 | Outpatient (CLI) | payer OTHER, MEDICAID, SELFPAY ==
--- NOTE | 2021-05-14 | DI.RAD.S_ITS ---
PROCEDURE: XR CERVICAL SPINE 2V OR 3V INDICATIONS: NECK PAIN X1 YEAR POPPING/SHARP PAIN DOWN R ARM TECHNIQUE: 3 view(s) of the cervical spine were acquired. COMPARISON: None. FINDINGS: Bones: No fractures or dislocations to the T1 level. The lateral masses of C1 appear intact on the odontoid view. No suspicious bony lesions. Multilevel facet arthropathy. Soft tissues: No prevertebral soft tissue swelling. IMPRESSION: Cervical facet arthropathy. No evidence acute bony abnormality of the cervical spine. If clinical suspicion and/or symptoms persist, further assessment with repeat plain films, or advanced imaging (e.g., CT, MRI, or bone scan) may be helpful for further assessment. Dictated by: Will Bowers M.D. on 05/14/2021 at 11:23 Approved by: Will Bowers M.D. on 05/14/2021 at 11:23
== END ==
PROVIDERS: Family Provider Nurse Practitioner; PCP Nurse Practitioner; Referring Provider Physician Assistant; Visit Provider Physician Assistant
DX: M54.2 Cervicalgia (principal); M47.812 Spondylosis without myelopathy or radiculopathy, cervical region
CPT/HCPCS: 72040

== ENCOUNTER 2021-06-02 15:44 | Emergency (ER) | payer OTHER, MEDICAID, SELFPAY ==
[2021-06-02 15:44] VITALS: BP 131/74; PULSE 83; RESP 18; TEMP 36.6; O2SAT 97; BMI 23.6
--- NOTE | 2021-06-02 15:49 | DI.RAD.S_ITS ---
PROCEDURE: XR KNEE LT 3V INDICATIONS: fall, trauma, TECHNIQUE: 3 views of the knee were acquired. COMPARISON: [facility], MR, MR KNEE LT WO CON, 02/09/2021, 8:50. [facility], CR, XR KNEE LT 3V, 12/18/2020, 10:28. FINDINGS: Bones: No fractures or dislocations. No suspicious bony lesions. On the lateral view, the patella is high-riding, which appears more prominent than on the prior plain film. Soft tissues: No joint effusion. No suspicious soft tissue calcifications. Soft tissue swelling is seen involving the anterior knee, inferior to the patella. IMPRESSION: Patella Chata, with associated soft tissue swelling. Please consider patellar tendon injury. If it would be helpful for clinical management decision making, please consider a dedicated, scheduled knee MRI for further evaluation (assuming that there is no contraindication). Dictated by: Donald Michelle M.D. on 06/02/2021 at 15:36 Approved by: Dnoald Michelle M.D. on 06/02/2021 at 15:37
--- NOTE | 2021-06-02 15:53 | ED_ITS ---
HPI - Extremity Injury (Lower) General Chief Complaint: Extremity Injury, Lower Stated Complaint: Dislocated Knee Time Seen by Provider: 06/02/21 15:49 Source: patient and EMS History of Present Illness HPI Narrative: Otherwise healthy 41-year-old woman stumbled and fell down the stairs with an abrupt flexion injury of her left knee with a ?pop? sensation severe pain and inability to bear weight. She does note that that knee has previous meniscal as well as ACL and PCL ligamentous injuries but has been stable and not causing her problems otherwise. Related Data Home Medications Medication Instructions Recorded Confirmed ferrous sulfate 142 mg (45 mg 142 mg PO DAILY 12/18/20 05/14/21 iron) tablet,extended release (Slow Fe) Previous Rx's Medication Instructions Recorded venlafaxine 37.5 mg 37.5 mg PO BEDTIME #90 cap 02/11/21 capsule,extended release 24 hr methocarbamol 500 mg tablet See Rx Instructions PO Q6-8H PRN 05/14/21 #20 tab oxycodone-acetaminophen 5 mg-325 1 tab PO Q8H PRN #10 tab 05/14/21 mg tablet (Percocet) hydroxyzine pamoate 25 mg capsule 25 mg PO QID PRN #20 cap 06/02/21 (Vistaril) oxycodone-acetaminophen 5 mg-325 1 tab PO Q4-6H PRN #20 tab 06/02/21 mg tablet (Percocet) Allergies Allergy/AdvReac Type Severity Reaction Status Date / Time No Known Drug Allergies Allergy Verified 06/02/21 15:50 Review of Systems Review of Systems Narrative: Pertinent positive and negative findings as per HPI Remainder of review of systems is otherwise unremarkable for Constitutional: Fevers, chills, weakness ENT: No sore throat, neck pain, ear pain CV: Chest pain, palpitations, dyspnea on exertion Respiratory: Cough, wheeze, dyspnea GI: Nausea, vomiting, diarrhea, change in bowel habits, black or bloody stools : Dysuria, hematuria, flank pain Skin: Rashes, nonhealing lesions Neuro: Syncope, dizziness, tingling Psych: Depression, anxiety, suicidal ideation Endocrine: Fatigue, heat or cold intolerance, very dry skin Patient History Medical History (Updated 06/02/21 @ 17:00 by Margot Kapadia MD) Anorexia nervosa Anxiety Biliary colic Bulimia Chicken pox Depression Hyperlipidemia LDL goal <100 Surgical History Anesthesia History of third molar tooth extraction History of tubal ligation (06/05/16) Hx of cholecystectomy S/P D&C (status post dilation and curettage) (~2015) S/P D&C (status post dilation and curettage) S/P endometrial ablation (~2017) Status post arthroscopy (2003) Family History Father Hypertension Hyperlipidemia Grandfather Lung cancer History of heart disease Hyperlipidemia Mental health problem Grandmother Stroke Mental health problem Hypertension Mother Cancer Grandfather History of heart disease Grandmother MVA (motor vehicle accident) Sister No problems noted. Brother No problems noted. Other Alcoholism Social History household members: significant other, children and friend(s) Smoking Status: Never smoker alcohol intake: current Smoking Status: Never smoker alcohol intake frequency: a few times a month Substance Use Type: does not use Exam Narrative Exam Narrative: General: Healthy appearing, in moderate distress. Able to give a complete and coherent history. Well-nourished well-developed HEENT: Moist mucous membranes, normal sclera with reactive pupils, Respiratory: Lungs are clear to auscultation, no wheezing no rales no rhonchi. Full and symmetrical air movement Cardiac: Regular rate and rhythm no murmurs no bruits Abdomen: Soft, nontender, good bowel tones, no flank pain Skin: Warm and dry, no rashes Neurologic: Grossly neurologically intact with no obvious asymmetries or abnormalities Extremities: Left thigh significantly swollen exquisitely tender distally with approximately displaced patella. Tender over patellar insertion. Knee overall is too tender to do any type of ligamentous stress. She does not have an effusion. There is no significant swelling at the joint line itself and there is no abrasions. Psych: Cooperative, appropriate insight and affect Initial Vital Signs Initial Vital Signs: Vital Signs Temperature 97.9 F 06/02/21 15:44 Pulse Rate 83 06/02/21 15:44 Respiratory Rate 18 06/02/21 15:44 Blood Pressure 131/74 06/02/21 15:44 Pulse Oximetry 97 06/02/21 15:44 Course Orders Ordered: ED Orders 06/02/21 15:49 XR knee LT 3V Stat Oxycodone/Acetaminophen (Oxycodone/Apap 5/325 Prepack) 1 bottle MISC SEEINSTR ONE Stop: 06/02/21 17:43 Discontinued Medications Hydroxyzine Pamoate (Hydroxyzine Pamoate 25 Mg Capsule) 50 mg PO NOW ONE Stop: 06/02/21 15:50 Last Admin: 06/02/21 16:25 Dose: 50 mg Documented by: KASI Ketorolac Tromethamine (Ketorolac 30 Mg/Ml Vial) 15 mg IV NOW ONE Stop: 06/02/21 17:28 Last Admin: 06/02/21 17:31 Dose: 15 mg Documented by: Oxycodone/Acetaminophen (Oxycodone/Acetaminophen 5/325 Tablet) 1 tab PO NOW ONE Stop: 06/02/21 17:28 Last Admin: 06/02/21 17:31 Dose: 1 tab Documented by: Vital Signs Vital signs: Vital Signs - 8 hr 06/02/21 15:44 Temperature 97.9 F Pulse Rate 83 Respiratory Rate 18 Blood Pressure 131/74 Pulse Oximetry 97 MDM - Extremity Injury (Lower) Imaging Data XR knee: Radiologist's Impression: FINDINGS:? ? Bones:? No fractures or dislocations.? No suspicious bony lesions.? On the lateral view, the patella is high-riding, which appears more prominent than on the prior plain film. ? Soft tissues:? No joint effusion.? No suspicious soft tissue calcifications.? Soft tissue swelling is seen involving the anterior knee, inferior to the patella. ? ? IMPRESSION:? Patella Chata, with associated soft tissue swelling.? Please consider patellar tendon injury. ? If it would be helpful for clinical management decision making, please consider a dedicated, scheduled knee MRI for further evaluation (assuming that there is no contraindication).? ? ? Dictated by: Donald Michelle M.D. on 06/02/2021 at 15:36 ? ? [facility] Narrative Medical decision making narrative: Otherwise healthy 41-year-old woman who fell down the stairs with an acute flexion injury to the left knee. Clinically has of patella tendon rupture and x-ray seems to support that. She has 2 tender at this point to more thoroughly examine her knee but she has known meniscal and ligamentous injury prior to this injury. She is placed in a long-leg knee immobilizer. She is given crutches. In the emergency department oral this rule is used to help with muscle spasm. She is given IV Toradol and Percocet to help with additional pain. To be discharged home with Percocet for pain, Vistaril for muscle spasm and ibuprofen to supplement both. She will need to follow-up with Orthopedic surgery. I spoke with Dr. June Kumar this evening and she will be contacting the patient and hopefully see her in clinic tomorrow to begin planning is for surgical repair. Discharge Plan Departure Patient Disposition: Home Clinical Impression: Patellar tendon rupture Instructions: DI for Knee Pain Activity Restrictions/Additional Instructions: Thank you for coming in today Based on your clinical exam, the mechanism of injury and your x-ray you have a patellar tendon rupture. You will need to be seen by [facility] please call [phone] For severe muscle spasm you can use 25 mg of Vistaril. Using 400 mg of ibuprofen (2 ugcb-[id number]-[id number] pills) and 1 Tylenol every 6 hours can be very helpful in controlling pain. For severe pain using to ibuprofen and 1 Percocet will be helpful. Prescriptions were electronically transmitted to [facility] Having the stability of the knee immobilizer will also help a bit with pain. You can toe-touch weightbear but your knee likely will not feel comfortable with full weight-bearing. He will need to use crutches I hope you heal quickly Prescriptions: New hydroxyzine pamoate [Vistaril] 25 mg capsule 25 mg PO QID PRN (Reason: muscle spasm) Qty: 20 0RF oxycodone-acetaminophen [Percocet] 5-325 mg tablet 1 tab PO Q4-6H PRN (Reason: pain) Qty: 20 0RF No Action methocarbamol 500 mg tablet See Rx Instructions PO Q6-8H PRN (Reason: muscle spasm) Qty: 20 0RF Rx Instructions: 1-2 tablets PO every 6-8 hours PRN; oxycodone-acetaminophen [Percocet] 5-325 mg tablet 1 tab PO Q8H PRN (Reason: pain, severe) Qty: 10 0RF venlafaxine 37.5 mg capsule,extended release 24hr 37.5 mg PO BEDTIME Qty: 90 1RF Rx Instructions: Take 1 tab by mouth at bedtime daily for depression, anxiety, insomnia Slow Fe 142 mg (45 mg iron) tablet extended release 142 mg PO DAILY 0RF Referrals: Tyesha Marie ARNP [Primary Care Provider] -
[2021-06-02] MEDS: hydrOXYzine pamoate 25 MG CAPSULE 50 MG PO (16:25)
[2021-06-02] MEDS: OXYCODONE/ACETAMINOPHEN 5/325 TABLET 1 TAB PO (17:31)
[2021-06-02] MEDS: KETOROLAC 30 MG/ML VIAL 15 MG IV (17:31)
[2021-06-02] MEDS: OXYCODONE/APAP 5/325 PREPACK 1 BOTTLE MISC (17:48)
[2021-06-02 18:02] VITALS: BP 136/79; PULSE 87; RESP 18; O2SAT 97
== END 2021-06-02 18:17 | disposition home or self-care (01) ==
PROVIDERS: Emergency Provider Emergency Medicine; Family Provider Nurse Practitioner; PCP Nurse Practitioner
DX: S76.112A Strain of left quadriceps muscle, fascia and tendon, initial encounter (principal); W10.9XXA Fall (on) (from) unspecified stairs and steps, initial encounter
CPT/HCPCS: 73562; 96374; 99284; J1885

== ENCOUNTER → 2022-09-06 08:26 | Outpatient (CLI) | payer OTHER, SELFPAY ==
--- NOTE | 2022-09-06 08:30 | DI.MG.S_ITS ---
BILATERAL DIGITAL SCREENING MAMMOGRAM 3D/2D WITH CAD: 09/06/2022 CLINICAL: Baseline exam. Routine screening. No prior exams were available for comparison. Both breasts are heterogeneously dense, which may obscure small masses (category c / 51-75% glandular tissue). Current study was also evaluated with a Computer Aided Detection (CAD) system. No significant masses, calcifications, or other findings are seen in either breast. IMPRESSION: NEGATIVE There is no mammographic evidence of malignancy. A 1 year screening mammogram is recommended. Based on the Tyrer Cuzick model (a risk assessment model) the patient's lifetime risk is 11.1% and her 10 year risk is 1.4%. According to the ACR, ACS, and NCCN guidelines, an annual breast MRI exam along with mammogram is recommended if the patient's lifetime risk is 20% or greater. This exam was interpreted at Station ID: [id number]. NOTE: For mammograms, a report in lay terms will be sent to the patient. Approximately 15% of breast malignancies will not be visualized mammographically. In the management of a palpable breast mass, a negative mammogram must not discourage biopsy of a clinically suspicious lesion. Electronically Signed By: Jarvis bello/brandan:09/08/2022 07:27:20 letter sent: Normal Exam ACR BI-RADS Category 1: Negative [id number]
== END ==
PROVIDERS: Family Provider Nurse Practitioner; PCP Nurse Practitioner; Referring Provider Nurse Practitioner; Visit Provider Nurse Practitioner
DX: Z12.31 Encounter for screening mammogram for malignant neoplasm of breast (principal)
CPT/HCPCS: 77063; 77067

== ENCOUNTER → 2022-09-08 08:00 | Outpatient (CLI) | payer OTHER, SELFPAY ==
[2022-09-08 09:03] LABS: Add Manual Diff / Slide Review NO; Basophils Absolute Auto 0 /uL (0-100); Basophils Percent Auto 0.7 % (0-2); Eosinophils Absolute Auto 200 /uL (0-450); Eosinophils Percent Auto 3.1 % (2-4); Hemoglobin 13.4 g/dL (12.0-16.0); Lymphocytes Absolute Auto 2600 /uL (1100-4500); Lymphocytes Percent Auto 45.6 % (25-40); Mean Corpuscular HGB Conc 35.4 % (30-36); Mean Corpuscular Hemoglobin 30.5 PG (26-34); Mean Corpuscular Volume 86.3 fL (80-100); Monocytes Absolute Auto 300 /uL (0-900); Monocytes Percent Auto 5.5 % (3-14); Neutrophils Absolute Auto 2600 /uL (1500-7000); Neutrophils Percent Auto 45.1 % (50-75); Platelet Count 273 X10^3/uL (150-400); Red Cell Distribution Width 12.5 % (11.6-14.8); White Blood Cell Count 5.7 X10^3/uL (4.5-11.0)
[2022-09-08 09:31] LABS: Alanine Aminotransferase 40 IU/L (<35); Albumin 4.3 g/dL (3.5-5.0); Albumin Globulin Ratio 1.7 (1.0-2.8); Alkaline Phosphatase 78 U/L (38-126); Aspartate Aminotransferase 38 IU/L (14-36); BUN Creatinine Ratio 21.9 (6-22); Bilirubin Total 0.5 mg/dL (0.2-1.3); Blood Urea Nitrogen 14 mg/dL (7-17); Calcium 9.2 mg/dL (8.4-10.2); Carbon Dioxide 29 mmol/L (22-32); Chloride 99 mmol/L (98-107); Cholesterol 226 mg/dL (140-199); Estimated Glomerular Filt Rate > 60 mL/min (>60); Globulin 2.6 g/dL (1.7-4.1); Glucose 97 mg/dL (70-100); HDL Cholesterol 83 mg/dL (40-60); HEMOLYSIS < 15 (0-50); LDL Cholesterol Calculated 133 mg/dL (<100); Potassium 3.8 mmol/L (3.4-5.1); Sodium 137 mmol/L (137-145); Total Protein 6.9 g/dL (6.3-8.2); Triglycerides 48 mg/dL (35-150)
[2022-09-08 09:38] LABS: Creatinine Urine Random 49.6 mg/dL
[2022-09-08 09:42] LABS: Microalbumin Urine Random < 0.6 mg/dL (0-1.6)
[2022-09-08 09:45] LABS: Free T3, Triiodothyronine Free 4.03 pg/mL (2.77-5.27); Free T4, Direct Thyroxine 0.93 ng/dL (0.78-2.19)
[2022-09-08 09:59] LABS: Thyroid Stimulating Hormone 2.75 uIU/mL (0.47-4.68)
== END ==
PROVIDERS: Family Provider Nurse Practitioner; PCP Nurse Practitioner; Referring Provider Nurse Practitioner; Visit Provider Nurse Practitioner
DX: Z00.00 Encounter for general adult medical examination without abnormal findings (principal)
CPT/HCPCS: 36415; 80053; 80061; 82043; 82570; 84439; 84443; 84481; 85025

== ENCOUNTER 2023-03-27 21:57 | Emergency (ER) | payer OTHER, SELFPAY ==
--- NOTE | 2023-03-27 21:59 | DI.RAD.S_ITS ---
PROCEDURE: XR ANKLE LT MIN 3V INDICATIONS: Lateral and medial malleolus pain after injury TECHNIQUE: 3 views of the ankle were acquired. COMPARISON: None. FINDINGS: Bones: No fractures or dislocations. Ankle mortise is normally aligned. No suspicious bony lesions. Soft tissues: Small tibiotalar joint effusion. Achilles tendon appears normal. IMPRESSION: Small joint effusion but no radiographic evidence of acute fracture. Dictated by: Shira Newman M.D. on 03/27/2023 at 23:38 Approved by: Shira Newman M.D. on 03/27/2023 at 23:38
--- NOTE | 2023-03-27 22:02 | ED_ITS ---
HPI - General Adult General Chief complaint: Extremity Injury, Lower Stated complaint: Rolled ankle Time Seen by Provider: 03/27/23 21:59 Source: patient Mode of arrival: Ambulatory Limitations: no limitations History of Present Illness HPI narrative: Patient is a 43-year-old female who is here for evaluation of a left ankle injury. Patient states she rolled her left ankle earlier this evening. She has pain on the outside and inside of the ankle. No other injuries from the event. Did not hit her head. No knee tenderness. She is able to ambulate but it does hurt to walk on. Related Data Previous Rx's Medication Instructions Recorded venlafaxine 37.5 mg 37.5 mg PO BEDTIME #90 caps 04/03/22 capsule,extended release 24 hr dextroamphetamine-amphetamine 15 15 mg PO TID #90 tabs 03/06/23 mg tablet epinephrine 0.3 mg/0.3 mL 0.3 mg (0.3 mL) IM ONCE #2 ea 03/26/23 injection, auto-injector (EpiPen 2-Yonathan) Allergies Allergy/AdvReac Type Severity Reaction Status Date / Time No Known Drug Allergies Allergy Verified 03/26/23 10:45 Review of Systems Constitutional Constitutional: Reports system reviewed and no additional complaints, except as documented Musculoskeletal Musculoskeletal: Reports system reviewed and no additional complaints, except as documented Integumentary/Breasts Skin/Breast: Reports system reviewed and no additional complaints, except as documented Neurologic Neurologic: Reports system reviewed and no additional complaints, except as do cumented Patient History Medical History Corneal ulcer Depression Hyperlipidemia LDL goal <100 Biliary colic Bulimia Anxiety Anorexia nervosa Chicken pox Surgical History Hx of cholecystectomy Anesthesia S/P endometrial ablation (~2017) S/P D&C (status post dilation and curettage) History of tubal ligation (06/05/16) S/P D&C (status post dilation and curettage) (~2015) History of third molar tooth extraction Status post arthroscopy (2003) Family History Father Hypertension Hyperlipidemia Grandfather Lung cancer History of heart disease Hyperlipidemia Mental health problem Grandmother Stroke Mental health problem Hypertension Mother Cancer Grandfather History of heart disease Grandmother MVA (motor vehicle accident) Sister No problems noted. Brother No problems noted. Other Alcoholism Social History household members: significant other, children and friend(s) Smoking Status: Never smoker alcohol intake: current Smoking Status: Never smoker alcohol intake frequency: a few times a month Substance Use Type: does not use Exam Initial Vital Signs Initial Vital Signs: Vital Signs Temperature 98.3 F 03/27/23 22:04 Pulse Rate 102 H 03/27/23 22:04 Respiratory Rate 15 03/27/23 22:04 Blood Pressure 130/87 03/27/23 22:04 Pulse Oximetry 100 03/27/23 22:04 Oxygen Delivery Method Room Air 03/27/23 22:04 Const General: cooperative, comfortable and No ill appearing Cardio Pulses: dorsalis pedis present on the left Skin General: no rashes or lesions noted Neuro Sensory Exam: no sensory deficits noted Extrem Other: Achilles tendon is intact on the left. Has tenderness along both the lateral and medial malleolus with swelling along the lateral malleolus. Some tenderness along the tibiotalar joint. No foot tenderness. No Lisfranc joint tenderness. Course Orders Ordered: ED Orders 03/27/23 21:59 XR ankle LT min 3V Stat Vital Signs Vital signs: Vital Signs - 8 hr 03/27/23 22:04 03/27/23 23:01 Temperature 98.3 F Pulse Rate 102 H 82 Respiratory Rate 15 16 Blood Pressure 130/87 130/71 Pulse Oximetry 100 100 Oxygen Delivery Method Room Air Room Air Medical Decision Making Imaging Data Extremity x-ray #1: My Impression: No fractures or dislocations Radiologist's Impression: PROCEDURE: XR ANKLE LT MIN 3V INDICATIONS: Lateral and medial malleolus pain after injury TECHNIQUE: 3 views of the ankle were acquired. COMPARISON: None. FINDINGS: Bones: No fractures or dislocations. Ankle mortise is normally aligned. No suspicious bony lesions. Soft tissues: Small tibiotalar joint effusion. Achilles tendon appears normal. IMPRESSION: Small joint effusion but no radiographic evidence of acute fracture. Discharge Plan Departure Patient Disposition: Home Clinical Impression: Ankle sprain and strain Instructions: DI for Ankle Sprain, How To Perform RICE (Rest, Ice, Compress, Elevate), How to Apply an Elastic Wrap on Ankle Activity Restrictions/Additional Instructions: Can take Tylenol or ibuprofen for any discomfort. There were no fractures or dislocations noted so you can walk on your leg as tolerated. I do recommend ice. Return to the emergency department for new symptoms. Prescriptions: No Action dextroamphetamine-amphetamine 15 mg tablet 15 mg PO TID Qty: 90 0RF Rx Instructions: administer 3 doses per day, at least 4-6 hours apart venlafaxine 37.5 mg capsule,extended release 24hr 37.5 mg PO BEDTIME Qty: 90 3RF Rx Instructions: Take 1 tab by mouth at bedtime daily for depression, anxiety, insomnia epinephrine [EpiPen 2-Yonathan] 0.3 mg/0.3 mL auto-injector 0.3 mg IM ONCE Qty: 2 1RF Rx Instructions: as a single dose; may repeat once Referrals: Tyesha Marie ARNP [Primary Care Provider] - Stand Alone Forms: Patient Portal/API
[2023-03-27 22:04] VITALS: BP 130/87; PULSE 102; RESP 15; TEMP 36.8; O2SAT 100; BMI 25.1
[2023-03-27 23:01] VITALS: BP 130/71; PULSE 82; RESP 16; O2SAT 100
== END 2023-03-27 23:03 | disposition home or self-care (01) ==
PROVIDERS: Emergency Provider Emergency Medicine; Family Provider Nurse Practitioner; PCP Nurse Practitioner
DX: S93.402A Sprain of unspecified ligament of left ankle, initial encounter (principal); S96.912A Strain of unspecified muscle and tendon at ankle and foot level, left foot, initial encounter; X50.1XXA Overexertion from prolonged static or awkward postures, initial encounter
CPT/HCPCS: 73610; 99283